=== PATIENT | male | born 1955 | race Caucasian/White ===

== ENCOUNTER 2023-07-17 10:43 | Outpatient (CLI) | payer OTHER ==
[2023-07-17 12:50] LABS: ALBUMIN 3.9 gm/dL (3.4-5.0); BILIRUBIN TOTAL 0.7 mg/dL (0.3-1.2); CALCIUM 9.2 mg/dL (8.5-10.1); CREATININE SERUM 0.97 mg/dL (0.70-1.30); GFR 76.96; MAGNESIUM 1.9 mg/dL (1.8-2.4); PHOSPHOROUS 2.6 mg/dL (2.5-4.9); POTASSIUM 4.24 mEq/L (3.5-5.1); TOTAL PROTEIN 6.9 gm/dL (6.4-8.2)
== END 2023-07-17 10:44 | disposition home or self-care (01) ==
LOC: LAB 10:43
PROVIDERS: ATTEND Orthopaedic Surgery
DX: E55.9 Vitamin D deficiency, unspecified (principal); M85.9 Disorder of bone density and structure, unspecified; E56.1 Deficiency of vitamin K; E21.3 Hyperparathyroidism, unspecified; M81.8 Other osteoporosis without current pathological fracture; E88.89 Other specified metabolic disorders

== ENCOUNTER 2023-08-31 07:15 | Outpatient (CLI) | payer OTHER ==
[2023-08-31 08:50] LABS: PH,URINE 5.5 (5.0-8.0); URINE APPEARANCE Clear; URINE BILIRRUBIN Negative (NEGATIVE); URINE BLOOD Negative; URINE COLOR Yellow; URINE GLUCOSE Negative (NEGATIVE); URINE LEUKOCYTE Negative; URINE NITRATE Negative; URINE PROTEIN Negative (NEGATIVE); URINE UROBILINOGEN 0.2 E.U./dl
[2023-08-31 08:52] LABS: URINE BACTERIA 7.5 uL (0.0-1933); URINE EPITHELIAL CELLS 1.8 uL (0.0-38.8); URINE RBC 3.3 uL (0.0-20.8)
[2023-08-31 08:52] LABS: HEMATOCRIT 43.6 % (39.0-48.0); HEMOGLOBIN 15.1 g/dL (13-16.00); MEAN CELL VOLUME 89.3 fL (80.0-100.00); MEAN CORPUSCULAR HGB CONC 34.7 g/dl (32.0-36.0); PLATELET COUNT 200 K/uL (150-450); RED BLOOD COUNT 4.89 M/uL (4.00-6.00); RED CELL DISTRIBUTION WIDTH 13.8 % (11.5-14.5)
[2023-08-31 09:08] LABS: INR 1.16; PARTIAL THROMBOPLASTIN TIME 30.6 SECONDS (22.0-34.0)
[2023-08-31 09:15] LABS: ALBUMIN 4.1 gm/dL (3.4-5.0); BILIRUBIN TOTAL 0.6 mg/dL (0.3-1.2); CALCIUM 9.6 mg/dL (8.5-10.1); CREATININE SERUM 1.09 mg/dL (0.70-1.30); GFR 67.27; GLOBULINA 2.7 G/DL (2.4-3.5); POTASSIUM 4.32 mEq/L (3.5-5.1); TOTAL PROTEIN 6.8 gm/dL (6.4-8.2)
== END 2023-08-31 07:16 | disposition home or self-care (01) ==
LOC: LAB 07:15
PROVIDERS: ATTEND Orthopaedic Surgery
DX: D64.89 Other specified anemias (principal); E88.89 Other specified metabolic disorders; D68.8 Other specified coagulation defects; N39.0 Urinary tract infection, site not specified; Z22.322 Carrier or suspected carrier of Methicillin resistant Staphylococcus aureus; E11.9 Type 2 diabetes mellitus without complications; I10 Essential (primary) hypertension; I49.8 Other specified cardiac arrhythmias; Z76.89 Persons encountering health services in other specified circumstances; M25.561 Pain in right knee; M25.562 Pain in left knee

== ENCOUNTER → 2023-09-19 10:59 | Outpatient (CLI) | payer OTHER ==
[2023-09-19 12:01] LABS: HEMATOCRIT 42.8 % (39.0-48.0); MEAN CELL VOLUME 89.1 fL (80.0-100.00); MEAN CORPUSCULAR HEMOGLOBIN 31.2 pg (27.00-32.0); PLATELET COUNT 205 K/uL (150-450); RED CELL DISTRIBUTION WIDTH 13.6 % (11.5-14.5)
== END | disposition home or self-care (01) ==
LOC: LAB 10:59
PROVIDERS: ATTEND Orthopaedic Surgery
DX: D64.9 Anemia, unspecified (principal); E55.9 Vitamin D deficiency, unspecified; M85.9 Disorder of bone density and structure, unspecified

== ENCOUNTER 2023-09-20 11:15 | Inpatient (IN) | payer OTHER ==
[~2023-09-20] VITALS: Ht 180.3 cm; Wt 80.7 kg
[2023-09-20] MEDS ORDERED: COZAAR100 MG PO (12:36)
[2023-09-20] MEDS ORDERED: TAMS0.4C PO (12:37)
[2023-09-20] MEDS ORDERED: OXYBUTYNIN CHLOR5 M1 PO (12:38)
[2023-09-25] MEDS ORDERED: OXYBUTYNIN CHLOR5 MG (08:00)
[2023-09-26 07:11] LABS: HEMATOCRIT 35.9 % (39.0-48.0); HEMOGLOBIN 12.6 g/dL (13-16.00); MEAN CELL VOLUME 89.5 fL (80.0-100.00); MEAN CORPUSCULAR HEMOGLOBIN 31.4 pg (27.00-32.0); MEAN CORPUSCULAR HGB CONC 35.1 g/dl (32.0-36.0); PLATELET COUNT 157 K/uL (150-450); RED BLOOD COUNT 4.01 M/uL (4.00-6.00); RED CELL DISTRIBUTION WIDTH 13.3 % (11.5-14.5)
[2023-09-27 05:11] LABS: HEMATOCRIT 31.2 % (39.0-48.0); MEAN CELL VOLUME 89.5 fL (80.0-100.00); MEAN CORPUSCULAR HGB CONC 35.8 g/dl (32.0-36.0); PLATELET COUNT 144 K/uL (150-450); RED BLOOD COUNT 3.49 M/uL (4.00-6.00); RED CELL DISTRIBUTION WIDTH 13.1 % (11.5-14.5)
[2023-09-27 05:14] LABS: HEMOGLOBIN 11.2 g/dL (13-16.00)
== END 2023-09-27 15:52 | disposition home or self-care (01) | DRG 470 ==
LOC: SURG 09-25 06:00 → O/R 09-25 06:00 → SURG 09-25 07:00
PROVIDERS: ADMIT Orthopaedic Surgery; ATTEND Orthopaedic Surgery
PROC: 8E0Y0CZ Robotic Assisted Procedure of Lower Extremity, Open Approach (ICD-10-PCS; 2023-09-25)
PROC: 0SRC0J9 Replacement of Right Knee Joint with Synthetic Substitute, Cemented, Open Approach (ICD-10-PCS; principal; 2023-09-25 07:00)
DX: M17.11 Unilateral primary osteoarthritis, right knee (principal); I10 Essential (primary) hypertension

== ENCOUNTER 2023-10-15 05:30 | Day surgery (SDC) | payer OTHER ==
[2023-10-10 12:25] LABS: PH,URINE 5.5 (5.0-8.0); URINE APPEARANCE Clear; URINE BILIRRUBIN Negative (NEGATIVE); URINE BLOOD Negative; URINE COLOR Dark Yellow; URINE GLUCOSE Negative (NEGATIVE); URINE LEUKOCYTE Negative; URINE NITRATE Negative; URINE PROTEIN Negative (NEGATIVE); URINE UROBILINOGEN 0.2 E.U./dl
[2023-10-10 12:32] LABS: URINE EPITHELIAL CELLS 1.5 uL (0.0-38.8); URINE RBC 6.1 uL (0.0-20.8); URINE WBC 2.9 uL (0.0-23.2)
[2023-10-10 12:44] LABS: HEMOGLOBIN 11.6 g/dL (13-16.00); MEAN CORPUSCULAR HEMOGLOBIN 32.4 pg (27.00-32.0); MEAN CORPUSCULAR HGB CONC 35.2 g/dl (32.0-36.0); PLATELET COUNT 460 K/uL (150-450); RED BLOOD COUNT 3.58 M/uL (4.00-6.00); RED CELL DISTRIBUTION WIDTH 13.9 % (11.5-14.5)
[2023-10-10 12:49] LABS: ALBUMIN 3.9 gm/dL (3.4-5.0); BILIRUBIN TOTAL 0.79 mg/dL (0.3-1.2); CALCIUM 9.6 mg/dL (8.5-10.1); CREATININE SERUM 0.97 mg/dL (0.70-1.30); GFR 76.96; GLOBULINA 2.9 G/DL (2.4-3.5); POTASSIUM 4.25 mEq/L (3.5-5.1); TOTAL PROTEIN 6.8 gm/dL (6.4-8.2)
[2023-10-10 13:09] LABS: INR 1.18; PARTIAL THROMBOPLASTIN TIME 37.6 SECONDS (22.0-34.0); PROTHROMBIN TIME 12.2 SECONDS (9.0-11.5)
[2023-10-10 13:12] LABS: COL EPI 100 SECONDS (82-175)
[2023-10-10 13:46] LABS: FIBRINOGEN 419 mg/dL (187.0-446.0)
[~2023-10-15 05:30] MED LIST: COZAAR100 MG PO; OXYBUTYNIN CHLOR5 M1 PO; OXYBUTYNIN CHLOR5 MG; TAMS0.4C PO
[2023-10-15] MEDS ORDERED: LIDOCAINE HCL/EPINEPHRINE 20 ML VIAL IJ ONE ×2 (07:11→09:15)
[2023-10-15] MEDS ORDERED: BUPIVACAINE HCL/PF 0.5% 30ML ML ONE (07:11)
[2023-10-15] MEDS ORDERED: CEFAZOLIN SODIUM 1,000 MG VIAL ONE (07:33)
[2023-10-15] MEDS ORDERED: VANCOMYCIN HCL 1,000 MG VIAL ONE (08:53)
[2023-10-15] MEDS ORDERED: CEFAZOLIN SODIUM 1,000 MG VIAL IV ONE (09:15)
[2023-10-15] MEDS ORDERED: BUPIVACAINE HCL/PF 0.5% 5MG/ML VIAL IJ ONE (09:15)
[2023-10-15] MEDS ORDERED: VANCOMYCIN HCL 1,000 MG VIAL IR ONE (09:15)
[2023-10-16 00:16] LABS: D DIMER 5.84 MG/L
[2023-10-16] MEDS ORDERED: ORPHENADRINE CITRATE 30 MG/ML AMPUL IV SCH (01:15)
[2023-10-16] MEDS ORDERED: GABAPENTIN 100 MG CAPSULE PO STA (01:33)
[2023-10-16] MEDS ORDERED: MORPHINE SULFATE 4 MG/ML VIAL IV PRN (01:45)
[2023-10-16] MEDS ORDERED: GABAPENTIN 100 MG CAPSULE PO SCH ×2 (01:45→07:02)
== END 2023-10-16 08:30 | disposition home or self-care (01) ==
LOC: CIR.AMB 05:30
PROVIDERS: ATTEND Orthopaedic Surgery
DX: M25.061 Hemarthrosis, right knee (principal); M24.561 Contracture, right knee; Z20.822 Contact with and (suspected) exposure to COVID-19; I10 Essential (primary) hypertension

== ENCOUNTER 2024-10-14 11:42 | Outpatient (CLI) | payer OTHER ==
[~2024-10-14 11:42] MED LIST changes: +DICLOFENAC POTA50 MG PO; +GABAPENTIN300 M2 PO
== END 2024-10-14 11:47 | disposition home or self-care (01) ==
LOC: RAD 11:42
PROVIDERS: ATTEND Orthopaedic Surgery
DX: M25.561 Pain in right knee (principal)